=== PATIENT | female | born 1935 | race Caucasian/White ===

== ENCOUNTER 2018-12-08 15:50 | Emergency (ER) | payer MEDICARE ==
--- NOTE | 2018-12-08 17:02 | RADIOLOGY REPORT (SQ) ---
EXAM DESCRIPTION: CHEST SINGLE VIEW COMPLETED DATE/TIME: 12/08/2018 4:52 pm REASON FOR STUDY: new a-fib COMPARISON: None. EXAM PARAMETERS: NUMBER OF VIEWS: One view. TECHNIQUE: Single frontal radiographic view of the chest acquired. RADIATION DOSE: NA LIMITATIONS: None. FINDINGS: LUNGS AND PLEURA: Emphysematous change with mild flattening of the diaphragm and hyperinfl ation. No focal consolidation. No pleural effusion or pneumothorax. MEDIASTINUM AND HILAR STRUCTURES: No masses. Contour normal. HEART AND VASCULAR STRUCTURES: Normal heart size. Ectatic atherosclerotic aorta. BONES: No acute findings. HARDWARE: None in the chest. OTHER: No other significant finding. IMPRESSION: Emphysematous change without evidence of acute cardiopulmonary process. TECHNICAL DOCUMENTATION: JOB ID: [id number] [employer]- All Rights Reserved Reading location - IP/workstation name: [email or web address]
[2018-12-08 18:14] LABS: ABSOLUTE BASOPHILS # (AUTO) 0.1 10^3/uL (0.0-0.2); ABSOLUTE EOSINOPHILS # (AUTO) 0.1 10^3/uL (0.0-0.6); ABSOLUTE MONOCYTES (AUTO) 0.4 10^3/uL (0.1-1.4); ABSOLUTE NEUT (AUTO) 5.9 10^3/uL (1.7-8.2); EOSINOPHILS % (AUTO) 1.3 % (0-6); HEMATOCRIT 40.7 % (36.0-47.0); LYMPHOCYTES % (AUTO) 23.7 % (13-45); MEAN CORPUSCULAR HGB CONC 34.5 g/dL (32.0-36.0); MEAN CORPUSCULAR VOLUME 90 fl (80-97); MONOCYTES % (AUTO) 5.1 % (3-13); PLATELET COUNT 390 10^3/uL (150-450); RED BLOOD COUNT 4.53 10^6/uL (3.72-5.28); RED CELL DISTRIBUTION WIDTH 13.2 % (11.5-14.0); SEGMENTED NEUTROPHILS % (AUTO) 68.9 % (42-78); TOTAL CELLS COUNTED % (AUTO) 100 %; WHITE BLOOD COUNT 8.5 10^3/uL (4.0-10.5)
[2018-12-08 18:33] LABS: ALANINE AMINOTRANSFERASE 27 U/L (9-52); ALBUMIN 4.6 g/dL (3.5-5.0); ALKALINE PHOSPHATASE 134 U/L (38-126); ANION GAP 11 (5-19); ASPARTATE AMINO TRANSFERASE 23 U/L (14-36); BILIRUBIN,DIRECT 0.2 mg/dL (0.0-0.4); BILIRUBIN,TOTAL 0.6 mg/dL (0.2-1.3); BLOOD UREA NITROGEN 10 mg/dL (7-20); CALCIUM 10.3 mg/dL (8.4-10.2); CARBON DIOXIDE 29 mmol/L (22-30); CHLORIDE 99 mmol/L (98-107); GLUCOSE 103 mg/dL (75-110); SODIUM 138.6 mmol/L (137-145); TOTAL PROTEIN 7.8 g/dL (6.3-8.2)
[2018-12-08 18:52] LABS: FREE T3 3.57 pg/mL (2.77-5.27); FREE T4 (FREE THYROXINE) 1.04 ng/dL (0.78-2.19)
[2018-12-08 19:06] LABS: THYROID STIMULATING HORMONE 2.79 uIU/mL (0.47-4.68)
--- NOTE | 2018-12-08 20:26 | ER Document Report ---
ED General - General Chief Complaint: Other Stated Complaint: ABNORMAL HEART Time Seen by Provider: 12/08/18 16:38 Mode of Arrival: Medic Information source: Emergency Med Personnel, Outside Facility Records Cannot obtain history due to: Dementia Notes: 83-year-old female presented via EMS from her primary care physician's office when they noticed that the patient was in atrial fibrillation with a rate of 86. According to the long term this is a new diagnosis for the patient. Patient is severely demented and only alert and oriented to herself. When asked she denies that she has any complaints including chest pain abdominal pain, palpitations, headache. She does repeatedly states that she wants to go home. Patient currently lives at the [facility]. I did speak to the director normal who reports that the patient has otherwise been acting well and only went to her physician for a checkup. - HPI Onset: Just prior to arrival Onset/Duration: Sudden Similar symptoms previously: No Recently seen / treated by doctor: Yes - Related Data Allergies/Adverse Reactions: No Known Drug Allergies Allergy (Verified 12/08/18 17:16) Past Medical History - General Information source: [facility] Records, Outside Facility Records Cannot obtain history due to: Dementia - Social History Smoking Status: Unknown if Ever Smoked Frequency of alcohol use: None Drug Abuse: None Lives with: Custodial Family History: Reviewed & Not Pertinent Patient has suicidal ideation: No Patient has homicidal ideation: No - Past Medical History Cardiac Medical History: Reports: Hx Hypertension Pulmonary Medical History: Reports: Hx COPD Renal/ Medical History: Denies: Hx Peritoneal Dialysis GI Medical History: Reports: Hx Gastroesophageal Reflux Disease Review of Systems - Review of Systems -: Yes ROS unobtainable due to patient's medical condition Physical Exam - Vital signs Vitals: Resp Pulse Ox 18 96 12/08/18 16:13 12/08/18 16:13 - Notes Notes: PHYSICAL EXAMINATION: GENERAL: Well-appearing, well-nourished and in no acute distress. HEAD: Atraumatic, normocephalic. EYES: Pupils equal round and reactive to light, extraocular movements intact, conjunctiva are normal. ENT: Nares patent, oropharynx clear without exudates. Moist mucous membranes. NECK: Normal range of motion, supple without lymphadenopathy LUNGS: Breath sounds clear to auscultation bilaterally and equal. No wheezes rales or rhonchi. HEART: Irregular rhythm, normal rate, no murmurs ABDOMEN: Soft, nontender, nondistended abdomen. No guarding, no rebound. No masses appreciated. Female : deferred Musculoskeletal: Normal range of motion, no pitting or edema. No cyanosis. NEUROLOGICAL: Alert and oriented x1, alert, awake, does not follow commands. PSYCH: Normal mood, normal affect. SKIN: Warm, Dry, normal turgor, no rashes or lesions noted. Course - Re-evaluation Re-evalutation: Laboratory 12/08/18 12/08/18 12/08/18 18:01 18:01 18:01 WBC 8.5 RBC 4.53 Hgb 14.0 Hct 40.7 MCV 90 MCH 31.0 MCHC 34.5 RDW 13.2 Plt Count 390 Seg Neutrophils % 68.9 Lymphocytes % 23.7 Monocytes % 5.1 Eosinophils % 1.3 Basophils % 1.0 Absolute Neutrophils 5.9 Absolute Lymphocytes 2.0 Absolute Monocytes 0.4 Absolute Eosinophils 0.1 Absolute Basophils 0.1 Sodium 138.6 Potassium 4.0 Chloride 99 Carbon Dioxide 29 Anion Gap 11 BUN 10 Creatinine 0.75 Est GFR ( Amer) > 60 Est GFR (Non-Af Amer) > 60 Glucose 103 Calcium 10.3 H Magnesium 2.0 Total Bilirubin 0.6 Direct Bilirubin 0.2 Neonat Total Bilirubin Not Reportable Neonat Direct Bilirubin Not Reportable Neonat Indirect Bili Not Reportable AST 23 ALT 27 Alkaline Phosphatase 134 H Troponin I Total Protein 7.8 Albumin 4.6 TSH 2.79 Free T4 1.04 Free T3 pg/mL 3.57 12/08/18 18:01 WBC RBC Hgb Hct MCV MCH MCHC RDW Plt Count Seg Neutrophils % Lymphocytes % Monocytes % Eosinophils % Basophils % Absolute Neutrophils Absolute Lymphocytes Absolute Monocytes Absolute Eosinophils Absolute Basophils Sodium Potassium Chloride Carbon Dioxide Anion Gap BUN Creatinine Est GFR ( Amer) Est GFR (Non-Af Amer) Glucose Calcium Magnesium Total Bilirubin Direct Bilirubin Neonat Total Bilirubin Neonat Direct Bilirubin Neonat Indirect Bili AST ALT Alkaline Phosphatase Troponin I < 0.012 Total Protein Albumin TSH Free T4 Free T3 pg/mL Chest X-Ray 12/08/18 16:39 IMPRESSION: Emphysematous change without evidence of acute cardiopulmonary process. Temp Pulse Resp BP Pulse Ox 98.2 F 82 16 143/73 H 94 12/08/18 21:13 12/08/18 21:13 12/08/18 21:13 12/08/18 21:13 12/08/18 21:13 83-year-old severely demented female presents via EMS from her doctor's office after they found her to have atrial fibrillation on EKG. EKG obtained here did show atrial fibrillation with a rate of 86. Patient unable to give me any history because of her dementia. I did speak to the director of the [facility] who states that the patient does not have a history of atrial fibrillation. CBC, CMP, cardiac enzymes and thyroid panel are all within normal limits. During her ED course patient converted into normal sinus rhythm. I did speak to our hospitalist as a consult to see if there was anything we could offer her as far as admission. Both him and I agree that patient is not a candidate for anticoagulation due to her dementia, and age. She has not had a heart rate over 88 during her ED course. I did explain all of this to Jena. Patient was discharged home back to her facility in stable condition. 12/08/18 20: I did speak to Jena Martínez who is the director of [facility] and made her aware that the patient will be discharged back to the facility. 12/09/18 23:36 - Vital Signs Vital signs: Temp Pulse Resp BP Pulse Ox 98.2 F 82 16 143/73 H 94 12/08/18 21:13 12/08/18 21:13 12/08/18 21:13 12/08/18 21:13 12/08/18 21:13 - Laboratory Result Diagrams: 12/08/18 18:01 12/08/18 18:01 Laboratory results interpreted by me: 12/08/18 18:01 Calcium 10.3 H Alkaline Phosphatase 134 H - Diagnostic Test Radiology reviewed: Image reviewed, Reports reviewed - EKG Interpretation by Me Rate: Normal Rhythm: A.Fib When compared to previous EKG there are: Previous EKG unavailable, Other - Second EKG shows the patient be in normal sinus rhythm. Discharge - Discharge Clinical Impression: Paroxysmal atrial fibrillation Hypertension Qualifiers: Hypertension type: unspecified Qualified Code(s): I10 - Essential (primary) hypertension Dementia Qualifiers: Dementia type: unspecified type Dementia behavioral disturbance: without behavioral disturbance Qualified Code(s): F03.90 - Unspecified dementia without behavioral disturbance Condition: Good Disposition: HOME-ASSISTED LIVING Instructions: Atrial Fibrillation ([facility]), Dementia ([facility]) Additional Instructions: The patient had normal blood work today. Patient converted back to normal sinus rhythm. She did not require any intervention and when weighing the risks to benefits for anticoagulation at her age and with her dementia it would be more dangerous to put her on a blood thinning medication and to not intervene at this time. Please have the patient follow-up with her primary care physician. Forms: Elevated Blood Pressure
[2018-12-08 21:15] VITALS: BP 143/73
--- NOTE | 2018-12-09 00:22 | EKG REPORT ---
SEVERITY:- ABNORMAL ECG - SINUS RHYTHM WITH FREQUENT APCs, CAN NOT R/O TRANSIENT A FIB REC REPEAT EKG : Confirmed by: Osmar Jaeger 09-Dec-2018 00:21:58
--- NOTE | 2018-12-09 17:21 | EKG REPORT ---
SEVERITY:- ABNORMAL ECG - SINUS RHYTHM : Confirmed by: Osmar Jaeger 09-Dec-2018 17:20:32
== END 2018-12-08 21:15 | disposition home health service (06) ==
LOC: ER 15:50
DX: I48.0 Paroxysmal atrial fibrillation (principal); I10 Essential (primary) hypertension; F03.90 Unspecified dementia, unspecified severity, without behavioral disturbance, psychotic disturbance, mood disturbance, and anxiety; J44.9 Chronic obstructive pulmonary disease, unspecified
CPT/HCPCS: 36415; 71045; 80053; 83735; 84439; 84443; 84481; 84484; 85025; 93005; 93010; 99285

== ENCOUNTER 2019-02-12 10:05 | Emergency (ER) | payer MEDICARE ==
--- NOTE | 2019-02-12 10:22 | ER Document Report ---
ED Medical Screen (RME) - General Chief Complaint: Cough Stated Complaint: COUGH,FEVER Time Seen by Provider: 02/12/19 10:15 Mode of Arrival: Wheelchair Information source: Patient, Outside Facility Records Cannot obtain history due to: Dementia Notes: Patient presents with complaint of cough and fever. Patient has dementia and is a poor historian. Caregiver who brought patient is not aware of when patient symptoms started or what other symptoms she is had aside from cough and fever. Patient does have a history of hypertension, A. fib, COPD as well as dementia. I have greeted and performed a rapid initial assessment of this patient. A comprehensive ED assessment and evaluation of the patient, analysis of test results and completion of the medical decision making process will be conducted by additional ED providers. TRAVEL OUTSIDE OF THE [place] IN LAST 30 DAYS: No - Related Data Allergies/Adverse Reactions: No Known Drug Allergies Allergy (Verified 02/12/19 10:09) Past Medical History - Past Medical History Cardiac Medical History: Reports: Hx Hypertension Pulmonary Medical History: Reports: Hx COPD Renal/ Medical History: Denies: Hx Peritoneal Dialysis GI Medical History: Reports: Hx Gastroesophageal Reflux Disease Physical Exam - Vital signs Vitals: Temp Pulse Resp BP Pulse Ox 99.1 F 97 18 118/56 L 94 02/12/19 10:11 02/12/19 10:11 02/12/19 10:11 02/12/19 10:11 02/12/19 10:11 - Respiratory Respiratory status: No respiratory distress Breath sounds: Nonproductive cough, Rhonchi Course - Vital Signs Vital signs: Temp Pulse Resp BP Pulse Ox 99.1 F 97 18 118/56 L 94 02/12/19 10:11 02/12/19 10:11 02/12/19 10:11 02/12/19 10:11 02/12/19 10:11
[2019-02-12 10:40] LABS: ABSOLUTE BASOPHILS # (AUTO) 0.1 10^3/uL (0.0-0.2); ABSOLUTE LYMPHOCYTES (AUTO) 1.3 10^3/uL (0.5-4.7); ABSOLUTE MONOCYTES (AUTO) 0.6 10^3/uL (0.1-1.4); ABSOLUTE NEUT (AUTO) 3.8 10^3/uL (1.7-8.2); BASOPHILS % (AUTO) 0.9 % (0-2); EOSINOPHILS % (AUTO) 0.2 % (0-6); HEMATOCRIT 36.7 % (36.0-47.0); HEMOGLOBIN 12.4 g/dL (12.0-15.5); LYMPHOCYTES % (AUTO) 22.9 % (13-45); MEAN CORPUSCULAR HEMOGLOBIN 30.3 pg (27.0-33.4); MEAN CORPUSCULAR HGB CONC 33.7 g/dL (32.0-36.0); MEAN CORPUSCULAR VOLUME 90 fl (80-97); MONOCYTES % (AUTO) 10.7 % (3-13); PLATELET COUNT 294 10^3/uL (150-450); RED CELL DISTRIBUTION WIDTH 14.9 % (11.5-14.0); SEGMENTED NEUTROPHILS % (AUTO) 65.3 % (42-78); TOTAL CELLS COUNTED % (AUTO) 100 %; WHITE BLOOD COUNT 5.8 10^3/uL (4.0-10.5)
--- NOTE | 2019-02-12 10:56 | RADIOLOGY REPORT (SQ) ---
EXAM DESCRIPTION: CHEST 2 VIEWS COMPLETED DATE/TIME: 02/12/2019 10:45 am REASON FOR STUDY: fever, cough COMPARISON: 12/08/2018 NUMBER OF VIEWS: Two view. TECHNIQUE: Frontal and lateral radiographic views of the chest acquired. LIMITATIONS: Right apex partially obscured by positioning. FINDINGS: LUNGS AND PLEURA: No opacities, masses or pneumothorax. No pleural effusion. Attenuated bl ood vessels and flattened floresita-diaphragms. MEDIASTINUM AND HILAR STRUCTURES: No masses. No contour abnormalities. HEART AND VASCULAR STRUCTURES: Heart normal in size and contour. No evidence for failure. BONES: No acute findings. HARDWARE: None in the chest. OTHER: No other significant finding. IMPRESSION: COPD. NO ACUTE RADIOGRAPHIC FINDING IN THE CHEST. TECHNICAL DOCUMENTATION: JOB ID: [id number] [employer]- All Rights Reserved Reading location - IP/workstation name: [email or web address]
[2019-02-12 11:05] LABS: ALANINE AMINOTRANSFERASE 16 U/L (9-52); ALKALINE PHOSPHATASE 93 U/L (38-126); ANION GAP 13 (5-19); ASPARTATE AMINO TRANSFERASE 26 U/L (14-36); BILIRUBIN,DIRECT 0.2 mg/dL (0.0-0.4); BILIRUBIN,TOTAL 0.5 mg/dL (0.2-1.3); BLOOD UREA NITROGEN 16 mg/dL (7-20); CALCIUM 9.7 mg/dL (8.4-10.2); CARBON DIOXIDE 26 mmol/L (22-30); CHLORIDE 100 mmol/L (98-107); GLUCOSE 99 mg/dL (75-110); SODIUM 138.5 mmol/L (137-145); TOTAL PROTEIN 6.9 g/dL (6.3-8.2)
--- NOTE | 2019-02-12 12:30 | ER Document Report ---
ED General - General Chief Complaint: Cough Stated Complaint: COUGH,FEVER Time Seen by Provider: 02/12/19 10:15 Mode of Arrival: Wheelchair Information source: Outside Facility Records - Jena from the [facility] [phone] Notes: Patient presents to the emergency department from the [facility] for complaints of cough. I contacted Jena at the [facility] who is a supervisor metal placing there and reports the patient is a dementia patient. She reports patient has been sleeping more and was coughing last night and her temperature was 102. She reports patient receives duo nebs and Mucinex. She reports patient is eating and drinking as normal. She reports patient has to be prompted to eat because all she wants to eat is sweets. She reports that is her baseline for the patient who has dementia. She reports no other symptoms such as vomiting and diarrhea. She reports she knows it is the weekend holiday weekend and she wanted to make sure patient did not have pneumonia. She reports patient has history of pneumonia. TRAVEL OUTSIDE OF THE [place] IN LAST 30 DAYS: No - HPI Onset: Yesterday Onset/Duration: Sudden Severity: None - Related Data Allergies/Adverse Reactions: No Known Drug Allergies Allergy (Verified 02/12/19 10:09) Past Medical History - General Information source: Patient, Outside Facility Records - Social History Smoking Status: Smoker,Current Status Unk Cigarette use (# per day): No Frequency of alcohol use: None Drug Abuse: None Lives with: [facility] Family History: Reviewed & Not Pertinent Patient has suicidal ideation: No Patient has homicidal ideation: No - Past Medical History Cardiac Medical History: Reports: Hx Atrial Fibrillation, Hx Hypertension Pulmonary Medical History: Reports: Hx COPD Renal/ Medical History: Denies: Hx Peritoneal Dialysis GI Medical History: Reports: Hx Gastroesophageal Reflux Disease Psychiatric Medical History: Reports: Other - Dementia Review of Systems - Review of Systems Notes: Review HPI for review of systems., All other systems negative Physical Exam - Vital signs Vitals: Temp Pulse Resp BP Pulse Ox 99.1 F 97 18 118/56 L 94 02/12/19 10:11 02/12/19 10:11 02/12/19 10:11 02/12/19 10:11 02/12/19 10:11 - Notes Notes: PHYSICAL EXAMINATION: GENERAL: In no acute distress -answers all questions in a very calm voice, no complaints voiced HEAD: Atraumatic, normocephalic. EYES: Pupils equal round extraocular movements intact, sclera anicteric, conjunctiva are normal. ENT: nares patent, oropharynx clear without exudates. Moist mucous membranes. NECK: Normal range of motion, supple without lymphadenopathy LUNGS: CTAB and equal. No wheezes rales or rhonchi. HEART: Regular rate and rhythm without murmurs ABDOMEN: Soft, no tenderness. No guarding, no rebound EXTREMITIES: Normal range of motion, no pitting edema. NEUROLOGICAL: Cranial nerves grossly intact. PSYCH: Normal mood, normal affect. SKIN: Warm, Dry, normal turgor, no rashes or lesions noted Course - Re-evaluation Re-evalutation: 02/12/19 Labs unremarkable chest x-ray normal EKG sinus rhythm. Urine is negative. Patient will be discharged back to the [facility]. She is resting no distress. - Vital Signs Vital signs: Temp Pulse Resp BP Pulse Ox 98.0 F 84 18 153/71 H 95 02/12/19 14:24 02/12/19 14:24 02/12/19 14:24 02/12/19 14:24 02/12/19 14:24 - Laboratory Result Diagrams: 02/12/19 10:25 02/12/19 10:25 Laboratory results interpreted by me: 02/12/19 02/12/19 02/12/19 10:25 10:25 12:30 RDW 14.9 H Est GFR (Non-Af Amer) 54 L Urine Protein 30 H - Diagnostic Test Radiology reviewed: Image reviewed - EXAM DESCRIPTION: CHEST 2 VIEWS COMPLETED DATE/TIME: 02/12/2019 10:45 am REASON FOR STUDY: fever, cough COMPARISON: 12/08/2018 NUMBER OF VIEWS: Two view. TECHNIQUE: Frontal and lateral radiographic views of the chest acquired. LIMITATIONS: Right apex partially obscured by positioning. FINDINGS: LUNGS AND PLEURA: No opacities, masses or pneumothorax. No pleural effusion. Attenuated blood vessels and flattened floresita- diaphragms. MEDIASTINUM AND HILAR STRUCTURES: No masses. No contour abnormalities. HEART AND VASCULAR STRUCTURES: Heart normal in size and contour. No evidence for failure. BONES: No acute findings. HARDWARE: None in the chest. OTHER: No other significant finding. IMPRESSION: COPD. NO ACUTE RADIOGRAPHIC FINDING IN THE CHEST. TECHNICAL DOCUMENTATION: JOB ID: [id number] [employer]- All Rights Reserved, Reports reviewed - EKG Interpretation by Me EKG shows normal: Sinus rhythm Rate: Normal Rhythm: NSR When compared to previous EKG there are: No significant change Additional EKG results interpreted by me: 02/12/19 13:[address] elevation no T wave inversion Discharge - Discharge Clinical Impression: Cough Condition: Stable Disposition: HOME, SELF-CARE Additional Instructions: *You have been evaluated for cough, fever *Her chest x-ray was negative for pneumonia. Her labs did not show infection *Ensure the patient is drinking enough fluids to stay well hydrated *Monitor her temperature, give Tylenol as indicated *Follow up with a primary care provider within one week *Return to ED for worsening condition, changes, needs
[2019-02-12 12:49] LABS: APPEARANCE,URINE CLEAR; BILIRUBIN,URINE NEGATIVE (NEGATIVE); COLOR,URINE YELLOW; GLUCOSE, URINE NEGATIVE (NEGATIVE); KETONES,URINE NEGATIVE (NEGATIVE); LEUKOCYTE ESTERASE,URINE NEGATIVE (NEGATIVE); NITRITE,URINE NEGATIVE (NEGATIVE); PROTEIN,URINE 30 mg/dL (NEGATIVE); URINE SPECIFIC GRAVITY 1.024; UROBILINOGEN,URINE NEGATIVE mg/dL (<2.0)
[2019-02-12 14:25] VITALS: BP 153/71
--- NOTE | 2019-02-12 17:45 | EKG REPORT ---
SEVERITY:- OTHERWISE NORMAL ECG - SINUS RHYTHM ATRIAL PREMATURE COMPLEX : Confirmed by: Osmar Jaeger 12-Feb-2019 17:44:17
== END 2019-02-12 14:25 | disposition home or self-care (01) ==
LOC: ER 10:05
DX: R05 Cough (principal); R50.9 Fever, unspecified; F03.90 Unspecified dementia, unspecified severity, without behavioral disturbance, psychotic disturbance, mood disturbance, and anxiety; R11.10 Vomiting, unspecified; R19.7 Diarrhea, unspecified; F17.200 Nicotine dependence, unspecified, uncomplicated; I48.91 Unspecified atrial fibrillation; I10 Essential (primary) hypertension; J44.9 Chronic obstructive pulmonary disease, unspecified
CPT/HCPCS: 36415; 71046; 80053; 81001; 85025; 87040; 87086; 93005; 93010; 99284

== ENCOUNTER 2020-03-19 04:54 | Emergency (ER) | payer MEDICARE ==
[2020-03-19] MEDS ORDERED: DIPH/PERTUSS(ACELL)/TETANUS VAC/PF 0.5 ML SYR (>=10YO) IM ONE (09:13)
--- NOTE | 2020-03-19 09:50 | ER Document Report ---
ED Fall - General Chief Complaint: Fall Injury Stated Complaint: FALL,HEAD LACERATION Time Seen by Provider: 03/19/20 09:08 Notes: CHIEF COMPLAINT: Fall HPI: 84-year-old female sent from [facility] for evaluation of possible fall out of bed. Patient unable to provide cognizant history. History obtained from nurses notes. Patient apparently was found on the floor next to her bed. Patient has a history of dementia. Patient apparently sustained injury to the left knee and the forehead. Unknown if patient is up-to-date on tetanus vac cination. ROS: See HPI -limited by mental status Cardiovascular: no chest pain Resp: no SOB GI: no vomiting Integumentary: Positive abrasion Allergy: no hives Musculoskeletal: Positive extremity pain or swelling Neurological: no numbness/tingling MEDICATIONS: I agree with the patient medications as charted by the RN. ALLERGIES: I agree with the allergies as charted by the RN. PAST MEDICAL HISTORY/PAST SURGICAL HISTORY: Reviewed and agree as charted by RN. SOCIAL HISTORY: Reviewed and agree as charted by RN. FAMILY HISTORY: No significant familial comorbid conditions directly related to patient complaint EXAM: Reviewed vital signs as charted by RN. CONSTITUTIONAL: Alert and oriented and responds appropriately to name. Patient pleasantly confused, well-nourished HEAD: Normocephalic; abrasion noted to left anterior forehead EYES: PERRL; Conjunctivae clear, sclerae non-icteric ENT: normal nose; no rhinorrhea; moist mucous membranes; pharynx without lesions noted, no uvula edema or deviation, no tonsillar hypertrophy, phonation normal NECK: Supple without meningismus; non-tender; no cervical lymphadenopathy, no masses CARD: RRR; no murmurs, no clicks, no rubs, no gallops; symmetric distal pulses RESP: Normal chest excursion without splinting or tachypnea; breath sounds clear and equal bilaterally; no wheezes, no rhonchi, no rales, pulse oximetry 96% on room air not hypoxic ABD/GI: Normal bowel sounds; non-distended; soft, non-tender, no rebound, no guarding; no palpable organomegaly or masses. BACK: The back appears normal and is non-tender to palpation, there is no CVA tenderness EXT: Normal ROM in all joints; bruising is noted over the left anterior knee, no tenderness on compression of the pelvis; no cyanosis, no effusions, no edema SKIN: Normal color for age and race; warm; dry; good turgor; no acute lesions noted NEURO: Moves all extremities equally; Motor and sensory function intact PSYCH: The patient's mood and manner are pleasantly confused. MDM: 84-year-old pleasantly confused female with head injury, knee injury after possible fall out of the bed. Patient voices no complaints other than headache at the site of injury and knee pain. Will obtain CT of the head and cervical spine will obtain x-ray of the pelvis, bilateral knees to evaluate for fracture injury. TRAVEL OUTSIDE OF THE [place] IN LAST 30 DAYS: No - Related data Allergies/Adverse Reactions: No Known Drug Allergies Allergy (Verified 03/19/20 05:26) Past Medical History - Social History Smoking Status: Unknown if Ever Smoked Family History: Reviewed & Not Pertinent Patient has homicidal ideation: No - Past Medical History Cardiac Medical History: Reports: Hx Atrial Fibrillation, Hx Hypertension Pulmonary Medical History: Reports: Hx COPD Renal/ Medical History: Denies: Hx Peritoneal Dialysis GI Medical History: Reports: Hx Gastroesophageal Reflux Disease Physical Exam - Vital signs Vitals: Temp Pulse Resp BP Pulse Ox 98.7 F 88 17 165/88 H 96 03/19/20 04:58 03/19/20 04:58 03/19/20 04:58 03/19/20 04:58 03/19/20 04:58 Course - Re-evaluation Re-evalutation: 03/19/20 12:19 No distress at this time. Imaging studies did not show acute findings. Lab work does not show acute findings. Will discharge back to facility. discussed with Dr. Terrazas, attending - Vital Signs Vital signs: Temp Pulse Resp BP Pulse Ox 98.7 F 88 25 H 162/99 H 93 03/19/20 04:58 03/19/20 04:58 03/19/20 11:02 03/19/20 10:52 03/19/20 11:02 - Laboratory Result Diagrams: 03/19/20 10:45 03/19/20 10:45 Laboratory results interpreted by me: 03/19/20 03/19/20 10:45 11:05 WBC 11.0 H RDW 14.5 H Lymph % (Auto) 10.9 L Absolute Neuts (auto) 9.2 H Seg Neutrophils % 83.8 H Urine Ketones 20 H Discharge - Discharge Clinical Impression: Fall Qualifiers: Encounter type: initial encounter Qualified Code(s): W19.XXXA - Unspecified fall, initial encounter Head injury due to trauma Qualifiers: Encounter type: initial encounter Qualified Code(s): S09.90XA - Unspecified injury of head, initial encounter Abrasion of forehead Qualifiers: Encounter type: initial encounter Qualified Code(s): S00.81XA - Abrasion of other part of head, initial encounter Contusion of knee, left Qualifiers: Encounter type: initial encounter Qualified Code(s): S80.02XA - Contusion of left knee, initial encounter Condition: Stable Disposition: HOME, SELF-CARE Additional Instructions: Cool compresses to the forehead and knee to help with bruising and swelling. Apply a small amount of antibiotic ointment over the abrasion on the forehead until healed. Imaging studies today did not show evidence of fracture or bleeding. Lab work did not show acute emergent abnormalities. Follow-up with a primary care provider within a week for reevaluation of symptoms and complaints
--- NOTE | 2020-03-19 09:52 | RADIOLOGY REPORT (SQ) ---
EXAM DESCRIPTION: KNEE LEFT 4 VIEW; KNEE RIGHT 4 VIEWS IMAGES COMPLETED DATE/TIME: 03/19/2020 9:42 am REASON FOR STUDY: trauma; fall COMPARISON: None. FINDINGS: Four views left knee: Osteopenic. Degenerative disease with changes most pronounced in t he lateral compartment. Prominent patellar spurring as well. Small -moderate effusion. No fracture evident. Four views right knee: Osteopenic. Pronounced osteoarthritic changes with marked loss of the latera l joint space and spurring throughout the knee. Small effusion. No fracture evident. TECHNICAL DOCUMENTATION: JOB ID: [id number] Reading location - IP/workstation name: [email or web address]
--- NOTE | 2020-03-19 09:52 | RADIOLOGY REPORT (SQ) ---
EXAM DESCRIPTION: KNEE LEFT 4 VIEW; KNEE RIGHT 4 VIEWS IMAGES COMPLETED DATE/TIME: 03/19/2020 9:42 am REASON FOR STUDY: trauma; fall COMPARISON: None. FINDINGS: Four views left knee: Osteopenic. Degenerative disease with changes most pronounced in t he lateral compartment. Prominent patellar spurring as well. Small -moderate effusion. No fracture evident. Four views right knee: Osteopenic. Pronounced osteoarthritic changes with marked loss of the latera l joint space and spurring throughout the knee. Small effusion. No fracture evident. TECHNICAL DOCUMENTATION: JOB ID: [id number] Reading location - IP/workstation name: [email or web address]
--- NOTE | 2020-03-19 09:53 | RADIOLOGY REPORT (SQ) ---
EXAM DESCRIPTION: PELVIS AP IMAGES COMPLETED DATE/TIME: 03/19/2020 9:42 am REASON FOR STUDY: trauma COMPARISON: None. NUMBER OF VIEWS: One view pelvis: LIMITATIONS: None. FINDINGS: Osteopenic. This limits. Bowel gas and stool also overlie and obscure some structures. No displaced fracture appreciated. Degenerative hip changes. SI joints intact. Lower lumbar spondy losis. OTHER: No other significant finding. IMPRESSION: Osteopenia. No gross fracture. TECHNICAL DOCUMENTATION: JOB ID: [id number] Reading location - IP/workstation name: [email or web address]
--- NOTE | 2020-03-19 10:09 | RADIOLOGY REPORT (SQ) ---
EXAM DESCRIPTION: CT HEAD WITHOUT IMAGES COMPLETED DATE/TIME: 03/19/2020 9:56 am REASON FOR STUDY: trauma COMPARISON: None. TECHNIQUE: Axial images acquired through the brain without intravenous contrast. Images reviewed wi th bone, brain and subdural windows. Images stored on PACS. All CT scanners at this facility use dose modulation, iterative reconstruction, and/or weight based d osing when appropriate to reduce radiation dose to as low as reasonably achievable (ALARA). [facility]: Dose Right [facility]: [facility] [facility]: Dose Right [facility]: Teradose 4D [facility]: [employer] RADIATION DOSE: CT Rad equipment meets quality standard of care and radiation dose reduction techniq ues were employed. CTDIvol: 53.2 mGy. DLP: 991 mGy-cm.mGy. LIMITATIONS: None. FINDINGS: VENTRICLES: Prominent. CEREBRUM: No mass effect. No hemorrhage. No midline shift. Areas of low density in the white matte r most likely due to chronic micro-vascular ischemic change. No evidence for acute territorial infar ction. CEREBELLUM: No mass effect. No hemorrhage. No alteration of density. No evidence for acute infarct ion. EXTRAAXIAL SPACES: Age-related involutional change. No fluid collections. ORBITS AND GLOBE: Symmetrical contour of the globes. CALVARIUM: No depressed fracture. PARANASAL SINUSES: No air-fluid level. SOFT TISSUES: Small hematoma overlying the anterior left frontal region. IMPRESSION: 1. Small hematoma at the anterior left frontal region. Otherwise, no acute intracrania l posttraumatic findings. 2. Chronic changes of atrophy and microvascular ischemia. TECHNICAL DOCUMENTATION: JOB ID: [id number] [address] [id number]: Final reports with documentation of one or more dose reduction techniques (e.g., Automate d exposure control, adjustment of the mA and/or kV according to patient size, use of iterative recons truction technique) 2010 [employer]- All Rights Reserved Reading location - IP/workstation name: [email or web address]
--- NOTE | 2020-03-19 10:14 | RADIOLOGY REPORT (SQ) ---
EXAM DESCRIPTION: CT CERVICAL SPINE WITHOUT IMAGES COMPLETED DATE/TIME: 03/19/2020 9:56 am REASON FOR STUDY: trauma COMPARISON: None. TECHNIQUE: Axial images acquired through the cervical spine without intravenous contrast. Images re viewed with lung, soft tissue and bone windows. Reconstructed coronal and sagittal MPR images review ed. Images stored on PACS. All CT scanners at this facility use dose modulation, iterative reconstruction, and/or weight based d osing when appropriate to reduce radiation dose to as low as reasonably achievable (ALARA). [facility]: Dose Right [facility]: CareDose [facility]: Dose Right [facility]: Teradose 4D [facility]: [employer] RADIATION DOSE: CT Rad equipment meets quality standard of care and radiation dose reduction techniq ues were employed. CTDIvol: 23.0 mGy. DLP: 419 mGy-cm. mGy. LIMITATIONS: None. FINDINGS: ALIGNMENT: There is mild anterolisthesis of C3 on C4 and of C4 on C5. MINERALIZATION: Normal. VERTEBRAL BODIES: No acute fractures or dislocation. DISCS: Multilevel disc space narrowing with osteophytes. FACETS, LATERAL MASSES, POSTERIOR ELEMENTS: Facet arthropathy. No fractures. No dislocation. No ac [place] findings. HARDWARE: None in the spine. VISUALIZED RIBS: No fractures. LUNG APICES AND SOFT TISSUES: No significant or acute findings. IMPRESSION: Multilevel degenerative changes at the cervical spine. No evidence for acute fracture. TECHNICAL DOCUMENTATION: JOB ID: [id number] NM-64 Quality ID # [id number]: Final reports with documentation of one or more dose reduction techniques (e.g., Au tomated exposure control, adjustment of the mA and/or kV according to patient size, use of iterative reconstruction technique) 2010 [employer]- All Rights Reserved Reading location - IP/workstation name: [email or web address]
[2020-03-19 10:56] LABS: ABSOLUTE EOSINOPHILS # (AUTO) 0.1 10^3/uL (0.0-0.6); ABSOLUTE LYMPHOCYTES (AUTO) 1.2 10^3/uL (0.5-4.7); ABSOLUTE MONOCYTES (AUTO) 0.5 10^3/uL (0.1-1.4); ABSOLUTE NEUT (AUTO) 9.2 10^3/uL (1.7-8.2); BASOPHILS % (AUTO) 0.3 % (0-2); EOSINOPHILS % (AUTO) 0.5 % (0-6); HEMATOCRIT 39.8 % (36.0-47.0); HEMOGLOBIN 13.9 g/dL (12.0-15.5); LYMPHOCYTES % (AUTO) 10.9 % (13-45); MEAN CORPUSCULAR HEMOGLOBIN 31.1 pg (27.0-33.4); MEAN CORPUSCULAR VOLUME 89 fl (80-97); MONOCYTES % (AUTO) 4.5 % (3-13); PLATELET COUNT 292 10^3/uL (150-450); RED BLOOD COUNT 4.47 10^6/uL (3.72-5.28); RED CELL DISTRIBUTION WIDTH 14.5 % (11.5-14.0); SEGMENTED NEUTROPHILS % (AUTO) 83.8 % (42-78); TOTAL CELLS COUNTED % (AUTO) 100 %
[2020-03-19 11:15] LABS: ALBUMIN 4.5 g/dL (3.5-5.0); ALKALINE PHOSPHATASE 121 U/L (38-126); ANION GAP 10 (5-19); ASPARTATE AMINO TRANSFERASE 26 U/L (14-36); BILIRUBIN,TOTAL 0.8 mg/dL (0.2-1.3); BLOOD UREA NITROGEN 8 mg/dL (7-20); CALCIUM 9.9 mg/dL (8.4-10.2); CARBON DIOXIDE 27 mmol/L (22-30); CHLORIDE 102 mmol/L (98-107); GLUCOSE 106 mg/dL (75-110); POTASSIUM 4.2 mmol/L (3.6-5.0); TOTAL PROTEIN 7.6 g/dL (6.3-8.2)
[2020-03-19 11:23] LABS: APPEARANCE,URINE CLEAR; BILIRUBIN,URINE NEGATIVE (NEGATIVE); COLOR,URINE STRAW; GLUCOSE, URINE NEGATIVE (NEGATIVE); KETONES,URINE 20 mg/dL (NEGATIVE); LEUKOCYTE ESTERASE,URINE NEGATIVE (NEGATIVE); NITRITE,URINE NEGATIVE (NEGATIVE); PROTEIN,URINE NEGATIVE (NEGATIVE); URINE SPECIFIC GRAVITY 1.009; UROBILINOGEN,URINE NEGATIVE mg/dL (<2.0)
[2020-03-19 13:08] VITALS: BP 152/86
--- NOTE | 2020-03-19 22:15 | EKG REPORT ---
SEVERITY:- BORDERLINE ECG - PROBABLE A FIB, IRREGULAR RATE [id number] BORDERLINE T ABNORMALITIES, INFERIOR LEADS : Confirmed by: Osmar Jaeger 19-Mar-2020 22:14:54
== END 2020-03-19 13:45 | disposition home or self-care (01) ==
LOC: ER 04:54
DX: S09.90XA Unspecified injury of head, initial encounter (principal); S80.02XA Contusion of left knee, initial encounter; S00.81XA Abrasion of other part of head, initial encounter; W19.XXXA Unspecified fall, initial encounter
CPT/HCPCS: 36415; 70450; 72125; 72170; 80053; 81001; 84484; 85025; 90471; 90715; 93005; 93010; 99284

== ENCOUNTER 2020-10-17 15:02 | Emergency (ER) | payer MEDICARE ==
[2020-10-17 16:01] LABS: ALBUMIN 4.2 g/dL (3.5-5.0); ALKALINE PHOSPHATASE 100 U/L (38-126); ANION GAP 9 (5-19); ASPARTATE AMINO TRANSFERASE 27 U/L (14-36); BILIRUBIN,DIRECT 0.3 mg/dL (0.0-0.4); BILIRUBIN,TOTAL 0.8 mg/dL (0.2-1.3); BLOOD UREA NITROGEN 22 mg/dL (7-20); CALCIUM 9.8 mg/dL (8.4-10.2); CARBON DIOXIDE 27 mmol/L (22-30); CHLORIDE 105 mmol/L (98-107); GLUCOSE 113 mg/dL (75-110); POTASSIUM 4.5 mmol/L (3.6-5.0); TOTAL PROTEIN 7.3 g/dL (6.3-8.2)
[2020-10-17 16:04] LABS: ALCOHOL < 10 mg/dL (NONE DETECTED)
--- NOTE | 2020-10-17 16:57 | EKG REPORT ---
SEVERITY:- ABNORMAL ECG - SINUS ARRHYTHMIA with PAC NONSPECIFIC T ABNORMALITIES, DIFFUSE LEADS : Confirmed by: Ld Bird MD 17-Oct-2020 16:56:46
[2020-10-17 17:10] LABS: ABSOLUTE BASOPHILS # (AUTO) 0.1 10^3/uL (0.0-0.2); ABSOLUTE LYMPHOCYTES (AUTO) 1.6 10^3/uL (0.5-4.7); ABSOLUTE MONOCYTES (AUTO) 0.7 10^3/uL (0.1-1.4); ABSOLUTE NEUT (AUTO) 12.4 10^3/uL (1.7-8.2); BASOPHILS % (AUTO) 0.9 % (0-2); EOSINOPHILS % (AUTO) 0.2 % (0-6); HEMATOCRIT 40.9 % (36.0-47.0); HEMOGLOBIN 13.4 g/dL (12.0-15.5); LYMPHOCYTES % (AUTO) 10.6 % (13-45); MEAN CORPUSCULAR HEMOGLOBIN 29.8 pg (27.0-33.4); MEAN CORPUSCULAR HGB CONC 32.8 g/dL (32.0-36.0); MEAN CORPUSCULAR VOLUME 91 fl (80-97); MONOCYTES % (AUTO) 4.7 % (3-13); PLATELET COUNT 318 10^3/uL (150-450); RED BLOOD COUNT 4.51 10^6/uL (3.72-5.28); RED CELL DISTRIBUTION WIDTH 14.7 % (11.5-14.0); SEGMENTED NEUTROPHILS % (AUTO) 83.6 % (42-78); TOTAL CELLS COUNTED % (AUTO) 100 %; WHITE BLOOD COUNT 14.9 10^3/uL (4.0-10.5)
--- NOTE | 2020-10-17 17:27 | ER Document Report ---
Entered by FABIOLA SO SCRIBE 10/17/20 [id number] Acting as scribe for:MO ERNST DO ED General - General Chief Complaint: Weakness Stated Complaint: ALTERED MENTAL STATUS Time Seen by Provider: 10/17/20 17:17 Mode of Arrival: Medic Information source: Emergency Med Personnel Cannot obtain history due to: Dementia Notes: This 85-year-old female patient presents from the [facility] for concerns of generalized weakness. Family reports that the patient has a history of UTIs and she acts similar to this when she has a UTI. Family did also mention that the patient had the Covid vaccine 1 week ago and they are unsure if it is related. Patient has a baseline GCS of 13 so it is difficult to obtain meaningful history from her. TRAVEL OUTSIDE OF THE [place] IN LAST 30 DAYS: No - Related Data Allergies/Adverse Reactions: No Known Drug Allergies Allergy (Verified 10/17/20 15:11) Past Medical History - Social History Smoking Status: Never Smoker Family History: Reviewed & Not Pertinent Patient has homicidal ideation: No - Past Medical History Cardiac Medical History: Reports: Hx Atrial Fibrillation, Hx Hypertension Pulmonary Medical History: Reports: Hx COPD Renal/ Medical History: Denies: Hx Peritoneal Dialysis GI Medical History: Reports: Hx Gastroesophageal Reflux Disease Physical Exam - Vital signs Vitals: Pulse Ox 96 10/17/20 15:00 - Notes Notes: Physical Exam: General: Alert, pleasant. Does not know the month or the type of building that we are in. HEENT: Normocephalic. Atraumatic. PERRL. Extraocular movements intact. Oropharynx clear. Neck: Supple. Non-tender. Respiratory: No respiratory distress. Clear and equal breath sounds bilaterally. Cardiovascular: Regular rate and rhythm. Abdominal: Thin, fraile. Non-tender. No distension. Normal Bowel Sounds. Female Genitourinary: Incontinent, foul smelling urine. Back: No gross abnormalities. Extremities: Moves all four extremities. Upper extremities: Normal inspection. Normal ROM. Lower extremities: Normal inspection. No edema. Normal ROM. Neurological: Unable to state month or type of building we are in. Demented. Psychological: Normal affect. Normal Mood. Skin: Warm. Dry. Normal color. Course - Re-evaluation Re-evalutation: 10/17/20 22:06 Delightful pleasantly demented female here with UTI. Hypoinflated lungs on xra y. She is alert and nontoxic here but not oriented. She is hemodynamically stable and may have a bit of matabolic encephalopathy from the UTI. Will treat this and encourage close follow up to SNF. - Vital Signs Vital signs: Temp Pulse Resp BP Pulse Ox 98.7 F 78 13 163/70 H 96 10/17/20 15:11 10/17/20 15:11 10/17/20 22:01 10/17/20 22:01 10/17/20 22:01 - Laboratory Results Result Diagrams: 10/17/20 16:50 10/17/20 15:30 Laboratory Results Interpreted: 10/17/20 10/17/20 10/17/20 15:30 16:50 18:57 WBC 14.9 H RDW 14.7 H Lymph % (Auto) 10.6 L Absolute Neuts (auto) 12.4 H Seg Neutrophils % 83.6 H BUN 22 H Est GFR ( Amer) 55 L Est GFR (MDRD) Non-Af 45 L Glucose 113 H Urine Protein 30 H Urine Ketones 20 H Urine Urobilinogen 4.0 H Ur Leukocyte Esterase LARGE H Critical Laboratory Results Reviewed: No Critical Results - Radiology Results Critical Radiology Results Reviewed: No Critical Results - EKG Interpretation by Me EKG shows normal: Sinus rhythm Rate: Normal Rhythm: NSR - NSR [address] elevation or depression my interpretaiton. Discharge - Discharge Clinical Impression: UTI (urinary tract infection) Qualifiers: Urinary tract infection type: site unspecified Hematuria presence: with hematuria Qualified Code(s): N39.0 - Urinary tract infection, site not specified Dementia Qualifiers: Dementia type: unspecified type Dementia behavioral disturbance: without behavioral disturbance Qualified Code(s): F03.90 - Unspecified dementia without behavioral disturbance Condition: Stable Disposition: HOME, SELF-CARE Instructions: Cephalexin ([facility]), Urinary Tract Infection ([facility]) Additional Instructions: Rest, plenty of fluids. There is a urinary tract infection present. Take the antibiotic as perscribed until finished. Please return here for persistent vomiting, inability to tolerate the medicine, other problems or concerns Have the urine rechecked after treatment. I expect mental status to improve thru the week. If it does not have her rechecked. Prescriptions: Cephalexin Monohydrate [Keflex 500 mg Capsule] 500 mg PO TID #30 capsule Forms: Elevated Blood Pressure I personally performed the services described in the documentation, reviewed and edited the documentation which was dictated to the scribe in my presence, and it accurately records my words and actions.
--- NOTE | 2020-10-17 18:32 | RADIOLOGY REPORT (SQ) ---
EXAM DESCRIPTION: CHEST SINGLE VIEW IMAGES COMPLETED DATE/TIME: 10/17/2020 3:22 pm REASON FOR STUDY: htn COMPARISON: 02/12/2019 EXAM PARAMETERS: NUMBER OF VIEWS: One view. TECHNIQUE: Single frontal radiographic view of the chest acquired. RADIATION DOSE: NA LIMITATIONS: Hypoinflation. External leads partially obscure underlying structures. FINDINGS: LUNGS AND PLEURA: Some mild perihilar opacities are nonspecific. No definite pleural effu [place] or pneumothorax. Lungs are hypoinflated. MEDIASTINUM AND HILAR STRUCTURES: No masses. Contour normal. HEART AND VASCULAR STRUCTURES: Some increased central vascular and interstitial prominence. Increase d prominence of the cardiac silhouette may be due to hypoinflation. BONES: No acute findings. HARDWARE: None in the chest. OTHER: No other significant finding. IMPRESSION: Hypoinflation with increased central vascular prominence and perihilar opacities. Findi ngs could be due to low lung volumes and central atelectasis. Mild central vascular congestion is no t excluded. TECHNICAL DOCUMENTATION: JOB ID: [id number] 2010 [employer]- All Rights Reserved Reading location - IP/workstation name: [email or web address]
[2020-10-17 19:25] LABS: APPEARANCE,URINE SLIGHTLY-CLOUDY; BILIRUBIN,URINE NEGATIVE (NEGATIVE); COLOR,URINE YELLOW; GLUCOSE, URINE NEGATIVE (NEGATIVE); KETONES,URINE 20 mg/dL (NEGATIVE); LEUKOCYTE ESTERASE,URINE LARGE (NEGATIVE); NITRITE,URINE NEGATIVE (NEGATIVE); PROTEIN,URINE 30 mg/dL (NEGATIVE); URINE SPECIFIC GRAVITY 1.021
[2020-10-17 19:39] LABS: URINE AMPHETAMINES SCREEN NEGATIVE; URINE BARBITURATES SCREEN NEGATIVE; URINE BENZODIAZEPINES SCREEN NEGATIVE; URINE COCAINE SCREEN NEGATIVE; URINE MARIJUANA (THC) SCREEN NEGATIVE; URINE METHADONE SCREEN NEGATIVE; URINE PHENCYCLIDINE SCREEN NEGATIVE
[2020-10-17] MEDS ORDERED: CEFTRIAXONE 1 GM/D5W RTU 1 GM/50 ML RTUPB IV ONE (21:14)
[2020-10-17] MEDS ORDERED: CEFTRIAXONE INJ 1000 MG VIAL IM ONE (21:18)
[2020-10-17] MEDS ORDERED: LIDOCAINE 1% INJ-PF (10 MG/ML) 30 ML SDV IM ONE (21:18)
[2020-10-17 22:52] VITALS: BP 163/70
--- NOTE | 2020-10-18 09:33 | EKG REPORT ---
SEVERITY:- ABNORMAL ECG - SINUS RHYTHM FIRST DEGREE AV BLOCK BASELINE ARTEFACT AFFECTS INTERPRETATION : Confirmed by: Ld Bird MD 18-Oct-2020 09:33:11
== END 2020-10-17 23:11 | disposition home or self-care (01) ==
LOC: ER 15:02
DX: N39.0 Urinary tract infection, site not specified (principal); R53.1 Weakness; F03.90 Unspecified dementia, unspecified severity, without behavioral disturbance, psychotic disturbance, mood disturbance, and anxiety; R41.82 Altered mental status, unspecified; I48.91 Unspecified atrial fibrillation; Z87.440 Personal history of urinary (tract) infections
CPT/HCPCS: 93005; 99285; 96372; 36415; 80307 ×2; 83735; 85025; 80053; 81001; 71045; 93010; J3490; J0696